=== PATIENT | female | born 1985 | race Caucasian/White ===

== ENCOUNTER 2019-11-29 10:07 | Outpatient (CLI) | payer OTHER | END 2019-11-29 23:59 | disposition home or self-care (01) | LOC: CFH 10:07 | PROVIDERS: ATTEND Registered Nurse | DX: R05 Cough (principal); R06.02 Shortness of breath; R06.2 Wheezing | CPT/HCPCS: 71046 ==

== ENCOUNTER 2021-03-21 13:13 | Emergency (ER) | payer OTHER ==
[~2021-03-21] VITALS: Ht 157.5 cm; Wt 86.0 kg
--- NOTE | 2021-03-21 13:53 | NUR ---
PT STATES SOB FOR LAST FEW DAYS THAT HAS PROGRESSIVELY BEEN GETTING WORSE. PT STATES COUGH FOR A WEEK WITH CLEAR SPUTUM. WAS SENT FROM BECAUSE O2 LEVELS WERE TO LOW AND TO HAVE MORE TESTS DONE. REPORTS HEADACHE. DENIES CP.
--- NOTE | 2021-03-21 13:56 | NUR ---
PT AMBULATED TO ROOM. ATTACHED TO CARDIAC, SP02, AND BP MONITORS. PT IN NAD. VSS ON 2L NC. DIAGNOSED WITH THE FLU AT .
[2021-03-21] MEDS ORDERED: ALBUTEROL SULFATE 2.5 MG/3 ML NPPB ONE ×2 (14:00→16:30)
[2021-03-21] MEDS ORDERED: ALBUTEROL/IPRATROPIUM 2.5MG/0.5MG, 3 ML NEB ONE (14:00)
[2021-03-21] MEDS ORDERED: ALBUTEROL/IPRATROPIUM 2.5MG/0.5MG, 3 ML ONE (14:10)
[2021-03-21] MEDS ORDERED: ALBUTEROL SULFATE 2.5 MG/3 ML ONE ×2 (14:11→16:38)
--- NOTE | 2021-03-21 14:26 | NUR ---
PT USING BREATHING TREATMENT. TOLERATING WELL.
--- NOTE | 2021-03-21 14:43 | NUR ---
pt tolerated breathing treatment well. states she feels a lot better.
--- NOTE | 2021-03-21 15:42 | NUR ---
Note mayra in ED - 03/21/21 at 1600 by [email or web address] PT GOT UP WANDERING HALLS. TAKEN BACK TO ROOM AND HAD PT URINATE IN URINAL. PT CURRENTLY EATING ED FOOD TRAY. WAITIGN TO [facility].
--- NOTE | 2021-03-21 16:00 | NUR ---
PT AMBULATED DOWN HALLWAY. 02 RANGED FROM 89-92% WITHOUT OXYGEN. PT 96% RESTING IN BED WITH 2L NC
[2021-03-21 17:08] VITALS: BP 122/76
== END 2021-03-21 17:10 | disposition home or self-care (01) ==
LOC: ED 16:21
DX: J10.1 Influenza due to other identified influenza virus with other respiratory manifestations (principal); R06.89 Other abnormalities of breathing; J20.8 Acute bronchitis due to other specified organisms; R06.02 Shortness of breath
CPT/HCPCS: 93005; 94640; 99285; J7512; J7613